=== PATIENT | female | born 1950 | race Caucasian/White ===

== ENCOUNTER 2024-03-18 11:57 | Inpatient (IN) | payer MEDICARE, BC ==
[2024-03-18] VITALS (7 sets, daily range): BP systolic 96–104; BP diastolic 54–65; PULSE 49–69; TEMP 97.9–98.6
[~2024-03-18] VITALS: Ht 177.8 cm; Wt 80.5 kg
[2024-03-18] MEDS ORDERED: NS 1,000 ML IV ONE (12:15)
[2024-03-18] MEDS ORDERED: Ondansetron 4 MG/2 ML VIAL IV ONE (12:15)
[2024-03-18 12:22] LABS: BASO % 0.3 % (0.0-2.0); EOS % 0.3 % (0.0-4.0); GRAN # 9.5 K/mm3 (1.4-6.5); GRAN % 72.3 % (42.2-75.2); HEMATOCRIT 45.7 % (37.0-47.0); HEMOGLOBIN 14.5 g/dl (12.5-16.0); LYMPH # 2.6 K/mm3 (1.2-3.4); LYMPH % 19.7 % (20.0-51.0); MEAN CELL VOLUME 89 fl (80.0-100.0); MEAN CORPUSCULAR HEMOGLOBIN 28 pg (27-31); MEAN CORPUSCULAR HGB CONC 32 g/dl (33.0-37.0); MEAN PLATELET VOLUME 9.8 fl (7.4-10.4); MONO # 0.9 K/mm3 (0.1-0.6); MONO % 7.2 % (1.7-9.3); PLATELET COUNT 334 K/mm3 (130-400); RED BLOOD COUNT 5.11 M/mm3 (4.10-5.30); REDCELL DISTRIBUTION WIDTH-CV 13.4 % (11.5-14.5)
[2024-03-18 12:54] LABS: BILIRUBIN,TOTAL 1.4 mg/dL (0.2-1.2); CALCIUM 10.4 mg/dL (8.4-10.2); CREATININE, serum 1.39 mg/dL (0.57-1.11); POTASSIUM 4.3 mEq/L (3.5-4.5); TOTAL PROTEIN 7.3 g/dl (6.2-8.1)
[2024-03-18] MEDS ORDERED: Iohexol 300 - 100 ML VIAL IV ONE (13:07)
[2024-03-18] MEDS ORDERED: NS 100 ML IV SCH (13:08)
[2024-03-18] MEDS ORDERED: TENORMIN 2525 MG/TAB PO (13:43)
[2024-03-18] MEDS ORDERED: PROTONIX 40MG T40 MG PO (13:45)
[2024-03-18] MEDS ORDERED: SYNTHROID0.125 MG/T PO (13:46)
[2024-03-18 13:47] LABS: COLLECTION METHOD CLEAN CATCH
[2024-03-18 13:56] LABS: PH 6.5 (5.0-8.5); URINE APPEARANCE CLEAR (CLEAR/HAZY); URINE BLOOD NEGATIVE (NEGATIVE); URINE COLOR YELLOW (YELLOW); URINE GLUCOSE NEGATIVE (NEGATIVE); URINE KETONE TRACE (NEGATIVE); URINE NITRATE NEGATIVE (NEGATIVE); URINE PROTEIN(semi-quant) 1+ (NEGATIVE)
[2024-03-18] MEDS ORDERED: Morphine 4 MG/ML VIAL IV PRN (14:30)
[2024-03-18] MEDS ORDERED: Ondansetron 4 MG/2 ML VIAL IV PRN (14:30)
[2024-03-18] MEDS ORDERED: NS 1,000 ML IV SCH (14:30)
--- NOTE | 2024-03-18 15:22 | NUR ---
Pt arrived to the floor from ED. Pt ambulated to bed with no difficulty. Pt sitting up in bed, states she is not having any pain. Fluids started at 100 ml/hr. Assessment completed. Call light within reach.
[2024-03-18] MEDS ORDERED: Heparin 5,000 UNITS/ML 1 ML VIAL SQ SCH (16:00)
--- NOTE | 2024-03-18 20:00 | NUR ---
Assessment complete. A&Ox3. Denies pain/nausea/shortness of breath. VS stable. Left AC INT with NS@100ml/hr infusing without difficulty. Currently NPO status for bowel rest. Patient states she is already feeling better. Plan of care discussed for this shift to include NPO/meds/VS/calling for questions/concerns. Verbalizes understanding. Call light in reach will monitor.
[2024-03-19] VITALS (10 sets, daily range): BP systolic 88–106; BP diastolic 47–65; PULSE 56–67; TEMP 97.5–98.6
--- NOTE | 2024-03-19 03:33 | NUR ---
Spoke with ABY Anne-patients blood pressure currently 88/48. New orders received and initiated.
[2024-03-19] MEDS ORDERED: NS 500 ML IV ONE (03:45)
[2024-03-19 05:55] LABS: BASO % 0.3 % (0.0-2.0); EOS # 0.1 K/mm3 (0.0-0.7); EOS % 1.8 % (0.0-4.0); GRAN # 3.2 K/mm3 (1.4-6.5); GRAN % 47.9 % (42.2-75.2); LYMPH # 2.7 K/mm3 (1.2-3.4); LYMPH % 40.6 % (20.0-51.0); MEAN CELL VOLUME 89 fl (80.0-100.0); MEAN CORPUSCULAR HGB CONC 32 g/dl (33.0-37.0); MEAN PLATELET VOLUME 9.3 fl (7.4-10.4); MONO # 0.6 K/mm3 (0.1-0.6); MONO % 9.1 % (1.7-9.3); RED BLOOD COUNT 3.76 M/mm3 (4.10-5.30); REDCELL DISTRIBUTION WIDTH-CV 13.7 % (11.5-14.5)
--- NOTE | 2024-03-19 06:00 | NUR ---
Patient had an uneventful night. Denied pain/nausea/shortness of breath. Does have soft blood pressures-lowest being 88/40-fluid bolus given and recheck 96/58. Voiding without difficulty. NS@100ml/hr infusing to left AC INT without difficulty. Denies current questions/concerns. Will monitor.
[2024-03-19 06:08] LABS: HEMATOCRIT 33.6 % (37.0-47.0); MEAN CORPUSCULAR HEMOGLOBIN 28 pg (27-31)
[2024-03-19 06:09] LABS: HEMOGLOBIN 10.6 g/dl (12.5-16.0); PLATELET COUNT 210 K/mm3 (130-400)
[2024-03-19 06:14] LABS: CALCIUM 8.2 mg/dL (8.4-10.2); CREATININE, serum 0.98 mg/dL (0.57-1.11)
--- NOTE | 2024-03-19 08:00 | NUR ---
PATIENT IS A&O X4. VSS. NO C/O N/V OR PAIN. PATIENT IS NPO D/T SBO AND BOWEL REST. PATIENT IS INDEPENDENT IN ROOM. PATIENT ON I&Os. 90ML OF GASTROGRAFFIN GIVEN TO PATIENT FOR KUB AT 1100. IV IN LAC IS PATENT AND INTACT. IV FLUIDS RUNNING AT 100ML/HR. AT BEDSIDE. CALL LIGHT WITHIN REACH. NO FURTHER NEEDS AT THIS TIME.
[2024-03-19] MEDS ORDERED: SODIUM PO ONE (08:15)
[2024-03-19] MEDS ORDERED: DIATRIZOATE MEGLUMINE PO ONE (08:15)
--- NOTE | 2024-03-19 08:58 | NUR ---
trolley worker met with pt to discuss discharge planning. She reports to live with her , Sab[place] [phone] in [place]. She sees Dr. Donahue for PCP needs and obtains medications from [facility] with no difficulties. She is independent with [facility] and uses no DME. She reports to just be "clumsy sometimes." She is not sure if they have a DPOA-[facility] in their trust, but is agreeable to her being NOK. No further needs. Discharge Plan: home
[2024-03-19] MEDS ORDERED: Pantoprazole 40 MG in NS 10 ML IV SCH (09:00)
--- NOTE | 2024-03-19 09:31 | NUR ---
PATIENT ALERT AND ORIENTED X4. PATIENT HERE FOR SBO. PATIENT DENIES ANY N/V THIS AM. IV TO LEFT AC WITH NS RUNNING AT 100ML/HOUR. PATIENT ON RA. ORDER FOR 90CC GASTROGRAFFIN ADMINISTERED. PATIENT TOLERATED. KUB SCHEDULED FOR 1100. NO FURTHER NEEDS. CALL LIGHT IN REACH.
[2024-03-19] MEDS ORDERED: Ketorolac 15 MG/ML VIAL IV PRN (11:00)
--- NOTE | 2024-03-19 11:30 | NUR ---
C/O N/V AND HEADACHE. PRN PAIN MEDICATION GIVEN FOR HEADACHE AND ZOFRAN GIVEN FOR NAUSEA. AT BEDSIDE. CALL LIGHT WITHIN REACH. NO FURTHER NEEDS AT THIS TIME.
--- NOTE | 2024-03-19 18:10 | NUR ---
PATIENT UNABLE TO URINATE IN HAT TO MONITOR I&Os D/T FREQUENT BMS. REPORTED THAT SHE HAS HAD 4 BMS AND HAS VOIDED 4 TIMES SINCE NOON.
--- NOTE | 2024-03-19 18:49 | NUR ---
DISCHARGE INSTRUCTIONS REVIEWED WITH PATIENT. PATIENT VERBALIZED UNDERSTANDING. ON THE WAY TO PICK HER UP. PATIENT GATHERING BELONGINGS AND DRESSING SELF. NO FURTHER NEEDS.
--- NOTE | 2024-03-19 19:00 | NUR ---
PT DISCHARGED WITH SPOUSE AND BELONGINGS PER WC
== END 2024-03-19 19:00 | disposition home or self-care (01) | DRG 389 ==
LOC: COL.ER 11:57 → SURG 13:48
PROVIDERS: Physician Assistant; ADMIT Internal Medicine
DX: K56.50 Intestinal adhesions [bands], unspecified as to partial versus complete obstruction (principal); N17.9 Acute kidney failure, unspecified; M10.9 Gout, unspecified; E03.9 Hypothyroidism, unspecified; K29.70 Gastritis, unspecified, without bleeding; Z79.890 Hormone replacement therapy; Z88.2 Allergy status to sulfonamides; Z87.440 Personal history of urinary (tract) infections; Z98.51 Tubal ligation status
CPT/HCPCS: J1644; J1885; J2405; J2470; J7030; J7040; Q9963; Q9967